=== PATIENT | male | born 1955 | race African-American/Black ===

== ENCOUNTER 2018-06-03 14:25 | Emergency (ER) | payer OTHER ==
[~2018-06-03] VITALS: Ht 175.3 cm; Wt 81.6 kg
[~2018-06-03 14:25] MED LIST: BACTRIM DS TAB1 EAC1 ORAL; BACTRIM-DS1 EA ORAL; BACTRIM-DS1 EA PO; BENADRYL25 MG PO; CEPHALEXIN500 MG ORAL; ELIMITE 5% CREA60 GM EXT; ELIMITE60 GM TOP; KEFLEX250 MG PO; KEFLEX500 MG ORAL; KEFLEX500 MG PO; MOTRIN600 MG PO; NKM; PERMETHRIN60 GM TOP; PERMETHRIN60 GM TOPIC
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
[2018-06-03] MEDS ORDERED: Tylenol #3 tab (300mg/30mg) ORAL ONE (14:45)
[2018-06-03] MEDS ORDERED: Cephalexin 500mg cap ORAL ONE (14:45)
[2018-06-03] MEDS ORDERED: Cephalexin 500mg cap ONE (14:51)
[2018-06-03] MEDS ORDERED: Tylenol #3 tab (300mg/30mg) ONE (14:51)
[2018-06-03] MEDS ORDERED: CEPHALEXIN500 MG ORAL (15:30)
[2018-06-03] MEDS ORDERED: IBUPROFEN600 MG ORAL (15:30)
[2018-06-03 15:34] VITALS: BP 125/71
== END 2018-06-03 15:36 | disposition home or self-care (01) ==
LOC: EDBD 14:25 → EMR 14:34
DX: L03.115 Cellulitis of right lower limb (principal)
CPT/HCPCS: 99283

== ENCOUNTER 2019-08-06 13:23 | Emergency (ER) | payer OTHER ==
[~2019-08-06] VITALS: Ht 175.3 cm; Wt 70.3 kg
[~2019-08-06 13:23] MED LIST changes: +IBUPROFEN600 MG ORAL
--- NOTE | 2019-08-06 13:40 | NUR ---
ED Nurse Note: Patient was broguht to ER via wheelchiar due to right big toe pain. Patient is homeless, aox4. Placed patient on site monitor. ST in 180s noted oncardiac monitor. BP 99/77. Patient c/o 4/10 pain in right big toe. Patient denies any chest pain or SOB. patient states that a metal table fell on his right big toe 2 days ago, [facility]. dressing to right big toe form [facility] intact, and clean.
[2019-08-06] MEDS ORDERED: Adenosine 6mg/2ml Inj ONE ×3 (14:04→14:10)
--- NOTE | 2019-08-06 14:05 | NUR ---
ED Nurse Note: patient noted with ST 170s on monitoring and evaluation advisor. Adenosine 6mg IVP given. Dr. Anselmo STEVENSON at bedside.
--- NOTE | 2019-08-06 14:07 | NUR ---
ED Nurse Note: Patient still noted with ST in 170s. No c/o chest pain or SOB. another 6mg adenosine ivp given, Dr. Briones at bedside.
--- NOTE | 2019-08-06 14:10 | NUR ---
ED Nurse Note: SR in 70s noted on commodity manager after 12mg adenosine ivp given. Dr. Briones at bedside.
[2019-08-06 14:13] LABS: BASOPHILS % (AUTO) 0.9 % (0.0-2.0); EOSINOPHILS % (AUTO) 1.9 % (0.0-3.0); HEMATOCRIT 49.3 % (42.0-52.0); HEMOGLOBIN 15.8 G/DL (14.2-18.0); LYMPHOCYTES % (AUTO) 48.3 % (20.0-45.0); MEAN CORPUSCULAR VOLUME 85 FL (80-99); MONOCYTES % (AUTO) 11.9 % (1.0-10.0); PLATELET COUNT 305 K/UL (150-450); RED BLOOD COUNT 5.78 M/UL (4.70-6.10); RED CELL DISTRIBUTION WIDTH 13.3 % (11.6-14.8); WHITE BLOOD COUNT 4.2 K/UL (4.8-10.8)
--- NOTE | 2019-08-06 14:20 | NUR ---
ED Nurse Note: Patient using urinal in bed. No c/o chest pain or SOB.
[2019-08-06 14:25] LABS: ANION GAP 6 mmol/L (5-15); BLOOD UREA NITROGEN 21 mg/dL (7-18); CALCIUM 8.9 MG/DL (8.5-10.1); CARBON DIOXIDE 27 MMOL/L (21-32); CHLORIDE 111 MMOL/L (98-107); CREATININE 1.1 MG/DL (0.55-1.30); POTASSIUM 4.2 MMOL/L (3.5-5.1); SODIUM 144 MMOL/L (136-145)
[2019-08-06 14:38] LABS: ALANINE AMINOTRANSFERASE 42 U/L (12-78); ALBUMIN/GLOBULIN RATIO 0.8 (1.0-2.7); ALKALINE PHOSPHATASE 70 U/L (46-116); ASPARTATE AMINO TRANSFERASE 44 U/L (15-37); BILIRUBIN,TOTAL 0.4 MG/DL (0.2-1.0); CREATINE KINASE 235 U/L (26-308)
[2019-08-06] MEDS ORDERED: cefTRIAXone 1 GM in NS 55 ML IVPB ONE (15:30)
--- NOTE | 2019-08-06 15:57 | Diagnostic Imaging Report ---
Indication: Foot Pain Comparison: None Findings: 3 views of the right foot were obtained. There is a acute comminuted fracture of the distal phalange of the great toe. Bones are osteopenic. There is an old fracture of the fifth metatarsal. Hammertoe deformities of the second through fifth toes are noted. There is loss of the plantar arch. Generalized subcutaneous edema of the foot noted. There are screw tracks within the distal tibia indicative of previous hardware fixation. IMPRESSION: Acute comminuted fractures of the first distal phalange. Other findings as above
[2019-08-06] MEDS ORDERED: NORCO 5-325 TA1 EACH ORAL (15:58)
[2019-08-06] MEDS ORDERED: AUGMENTIN 875-1 EAC1 ORAL (15:58)
--- NOTE | 2019-08-06 16:00 | Diagnostic Imaging Report ---
Indication: Dyspnea Comparison: None A single view chest radiograph was obtained. Findings: No definite infiltrate or pulmonary vascular congestion identified. The heart is enlarged. The aorta is mildly enlarged consistent with atherosclerotic vascular disease. There is distal right clavicle resorption. There are surgical clips in the left axilla. The bones are osteopenic. Impression: No acute disease
[2019-08-06] MEDS ORDERED: Adenosine 6mg/2ml Inj IVP ONE ×3 (16:15)
--- NOTE | 2019-08-06 17:30 | NUR ---
Homeless Discharge: Patient is being discharged from medical care. Awake, alert and oriented x3. After care instructions, including referral to community resources were given. Patient verbalized understanding of After care instructions; at this time patient does not request medications, equipment or placement. Patient signed patient consent in the medical record for patient destination upon discharge. All medical devices such as IV and ID band were removed. Patient ambulated out with all personal belongings with steady gait.
[2019-08-06 17:40] VITALS: BP 135/70
--- NOTE | 2019-08-06 22:11 | Emergency Room Report ---
History of Present Illness General Chief Complaint: Lower Extremity Injury Source: Patient (Thom Briones MD) Present Illness HPI Patient presented for right great toe pain. Patient states that he had injured his right great toe after a table fell on his leg. He denies other locations of injury or pain. Patient states he had injury one day prior to arrival. He denies any other locations of discomfort at this time. He denies any chest discomfort. He denies any recent drug use. He had not been having any fever. Patient had been sent to the hospital after being seen at a clinic. (Thom Briones MD) Allergies: Coded Allergies: No Known Allergies (Unverified , 07/03/12) Patient History Past Medical History: see triage record Reviewed Nursing Documentation: PMH: Agreed; PSxH: Agreed (Thom Briones MD) Nursing Documentation-PMH Past Medical History: No Stated History (Thom Briones MD) Review of Systems All Other Systems: negative except mentioned in HPI (Thom Briones MD) Physical Exam Vital Signs Date Time Temp Pulse Resp B/P (MAP) Pulse Ox O2 Delivery O2 Flow Rate FiO2 08/06/19 13:26 98.2 182 18 84/61 (69) 96 Room Air Sp02 EP Interpretation: normal General Appearance: alert, GCS 15, Chronically Ill Eyes: bilateral eye PERRL ENT: hearing grossly normal, normal pharynx Neck: full range of motion Respiratory: lungs clear Cardiovascular #1: tachycardia Gastrointestinal: normal inspection, non tender, soft Musculoskeletal: swelling - right lower extremity with chronic skin thickening , swelling right great toe small laceration Neurologic: normal inspection, alert, oriented x3, responsive Psychiatric: normal inspection Skin: other - small laceration to dorsal lateral aspect of distal phalanx of right less than 1 cm. (Thom Briones MD) Medical Decision Making Diagnostic Impression: Primary Impression: Fracture of right great toe Additional Impression: PSVT (paroxysmal supraventricular tachycardia) ER Course Patient presented for right great toe pain. Differential diagnosis include was not limited to fracture, dislocation, contusion among others. Because of complexity of patient's case laboratory tests and imaging studies were ordered. Patient was noted to have abnormal vital signs with a heart rate of 180 initially. EKG interpreted by me showed superventricular tachycardia rate 180s with no acute ST or T wave changes. Initial troponin was noted to be negative. Patient was given adenosine and had conversion to sinus rhythm. Although the patient denied using cocaine and a urine drug screen did show positive for cocaine.Patient was given IV antibiotics and placed in a posterior splint. He was given adenosine due to tachycardia with conversion to sinus after 12 mg IVP. Xray right foot showed distal phalanx fracture. Given prescription for pain medication and antibiotics. Advised elevation and orthopedic follow up. Patient appears to be stable for outpatient management. Labs Test 08/06/19 13:45 08/06/19 13:53 White Blood Count 4.2 K/UL (4.8-10.8) Red Blood Count 5.78 M/UL (4.70-6.10) Hemoglobin 15.8 G/DL (14.2-18.0) Hematocrit 49.3 % (42.0-52.0) Mean Corpuscular Volume 85 FL (80-99) Mean Corpuscular Hemoglobin 27.3 PG (27.0-31.0) Mean Corpuscular Hemoglobin Concent 31.9 G/DL (32.0-36.0) Red Cell Distribution Width 13.3 % (11.6-14.8) Platelet Count 305 K/UL (150-450) Mean Platelet Volume 6.1 FL (6.5-10.1) Neutrophils (%) (Auto) 37.0 % (45.0-75.0) Lymphocytes (%) (Auto) 48.3 % (20.0-45.0) Monocytes (%) (Auto) 11.9 % (1.0-10.0) Eosinophils (%) (Auto) 1.9 % (0.0-3.0) Basophils (%) (Auto) 0.9 % (0.0-2.0) Sodium Level 144 MMOL/L (136-145) Potassium Level 4.2 MMOL/L (3.5-5.1) Chloride Level 111 MMOL/L (98-107) Carbon Dioxide Level 27 MMOL/L (21-32) Anion Gap 6 mmol/L (5-15) Blood Urea Nitrogen 21 mg/dL (7-18) Creatinine 1.1 MG/DL (0.55-1.30) Estimat Glomerular Filtration Rate > 60 mL/min (>60) Glucose Level 90 MG/DL (74-106) Calcium Level 8.9 MG/DL (8.5-10.1) Total Bilirubin 0.4 MG/DL (0.2-1.0) Aspartate Amino Transf (AST/SGOT) 44 U/L (15-37) Alanine Aminotransferase (ALT/SGPT) 42 U/L (12-78) Alkaline Phosphatase 70 U/L (46-116) Total Creatine Kinase 235 U/L (26-308) Troponin I 0.016 ng/mL (0.000-0.056) Pro-B-Type Natriuretic Peptide 3162 pg/mL (0-125) Total Protein 7.0 G/DL (6.4-8.2) Albumin 3.0 G/DL (3.4-5.0) Globulin 4.0 g/dL Albumin/Globulin Ratio 0.8 (1.0-2.7) Urine Opiates Screen Negative (NEGATIVE) Urine Barbiturates Screen Negative (NEGATIVE) Phencyclidine (PCP) Screen Negative (NEGATIVE) Urine Amphetamines Screen Negative (NEGATIVE) Urine Benzodiazepines Screen Negative (NEGATIVE) Urine Cocaine Screen Positive (NEGATIVE) Urine Marijuana (THC) Screen Positive (NEGATIVE) (Thom Briones MD) ER Course I was called in the morning time August 07 regarding positive blood culture The report is 1 bottle gram-positive cocci in clusters This appears to be likely contaminated sample however the patient was attempted to be contacted given positive cultures there is no phone number On file and there is no address Attempts are made to obtain further information through patient's insurance however there is no evidence of address or phone on file either (Mary Anne Grissom DO) EKG Diagnostic Results Rate: tachycardiac Rhythm: NSR ST Segments: no acute changes ASA given to the pt in ED: No (Thom Briones MD) Last Vital Signs Date Time Temp Pulse Resp B/P (MAP) Pulse Ox O2 Delivery O2 Flow Rate FiO2 08/06/19 17:40 98.2 75 18 135/70 96 Room Air Status: improved (Thom Briones MD) Disposition: HOME, SELF-CARE Condition: Stable Scripts Amoxicillin/Potassium Clav 875-125* (AUGMENTIN 875-125 TABLET*) 1 Each Tablet 1 TAB ORAL TWICE A DAY, #14 TAB Prov: Thom Briones MD 08/06/19 Hydrocodone Bit/Acetaminophen 5-325* (NORCO 5-325*) 1 Each Tablet 1 TAB ORAL Q6H PRN for For Pain, #20 TAB 0 Refills Prov: Thom Briones MD 08/06/19 Patient Instructions: Toe Fracture, [id number], Paroxysmal Supraventricular Tachycardia, [id number] Thom Briones MD Aug 06, 2019 22:10 Mary Anne Grissom DO Aug 08, 2019 09:28
--- NOTE | 2019-08-08 15:22 | Cardiology Report ---
APPROVED REPORT EKG Measurement Heart [id number] Supraventricular tachycardia Nonspecific T wave abnormality Abnormal ECG
== END 2019-08-06 17:40 | disposition home or self-care (01) ==
LOC: EMR 14:20
DX: S92.421A Displaced fracture of distal phalanx of right great toe, initial encounter for closed fracture (principal); I47.1 Supraventricular tachycardia; S91.111A Laceration without foreign body of right great toe without damage to nail, initial encounter; W20.8XXA Other cause of strike by thrown, projected or falling object, initial encounter; Y92.9 Unspecified place or not applicable
CPT/HCPCS: 29515; 36415; 71045; 73630; 80053; 80307; 82550; 83880; 84484; 85025; 87040; 87181; 93005; 96365; 96374; 96375; J0153; J0696; J1940; J7040; Z7502; 99284